=== PATIENT | male | born 1965 | race African-American/Black ===

== ENCOUNTER 2017-05-21 09:40 | Emergency (ER) | payer MEDICAID ==
[~2017-05-21] VITALS: Ht 180.3 cm; Wt 79.0 kg
[2017-05-21 11:43] VITALS: BP 164/107
[2017-05-21] MEDS ORDERED: IBUPROFEN 800MG TABLET PO ONE (11:45)
== END 2017-05-21 12:25 | disposition home or self-care (01) ==
LOC: ER 10:15
DX: S82.65XA Nondisplaced fracture of lateral malleolus of left fibula, initial encounter for closed fracture (principal); F17.210 Nicotine dependence, cigarettes, uncomplicated; F12.10 Cannabis abuse, uncomplicated; V23.4XXA Motorcycle driver injured in collision with car, pick-up truck or van in traffic accident, initial encounter; Y93.89 Activity, other specified; Y92.488 Other paved roadways as the place of occurrence of the external cause
CPT/HCPCS: 29505; 73610; 99284; Z7610